=== PATIENT | male | born 1940 | race Caucasian/White ===

== ENCOUNTER → 2018-06-26 | Outpatient (CLI) | payer MEDICARE, OTHER ==
--- NOTE | 2018-06-26 14:18 | REP ---
LEFT FINGERS, TWO VIEWS: HISTORY: Open wound. There is no acute fracture or dislocation. There is narrowing of the first carpometacarpal joint space with associated osteophyte formation. There is mild deformity of the greater multangular. IMPRESSION: Degenerative change as described above. Electronically Signed by Sergei Giordano MD 06/26/2018 02:22 P
== END ==
LOC: M WUC 12:59
PROVIDERS: ATTEND Physician Assistant
DX: M18.12 Unilateral primary osteoarthritis of first carpometacarpal joint, left hand (principal); S61.002A Unspecified open wound of left thumb without damage to nail, initial encounter